=== PATIENT | male | born 1975 | race Caucasian/White ===

== ENCOUNTER 2018-08-16 02:06 | Observation (INO) | payer SELFPAY ==
[~2018-08-16] VITALS: Ht 177.8 cm; Wt 99.8 kg
[2018-08-16] MEDS ORDERED: SODIUM CHLORIDE 0.9% 1,000 ML IV ONE (02:30)
[2018-08-16 03:00] LABS: Basophils # (auto) 0.1 uL; Basophils % (auto) 0.9 % (0.0-2.0); Eosinophils # (auto) 0 uL; Hematocrit 46.5 % (41.0-53.0); Hemoglobin 15.2 g/dL (13.5-17.5); Lymphocytes # (auto) 3.3 uL; Lymphocytes % (auto) 24.1 % (10.0-50.0); Mean Corpuscular Hemoglobin 28.9 pg (28.0-32.0); Mean Corpuscular Hgb Conc. 32.7 g/dL (32.0-36.0); Mean Corpuscular Volume 88.3 fL (80.0-100.0); Monocytes # (auto) 0.8 uL; Monocytes % (auto) 5.6 % (0.0-12.0); Neutrophils # (auto) 9.5 uL; Neutrophils % (auto) 69.4 % (37.0-80.0); Platelet Count (auto) 407 10^3/uL (140-450); Red Blood Cells 5.26 10^6/uL (4.5-5.90); Red Cell Distribution Width 14.4 % (11.8-14.3); White Blood Cell 13.7 10^3/uL (4.4-10.8)
[2018-08-16 03:21] LABS: Potassium 4.1 mmol/L (3.5-5.1)
[2018-08-16 03:25] LABS: Albumin 3.9 g/dL (3.4-5.0); BUN/Creatinine Ratio 13.8; Calcium 7.6 mg/dL (8.5-10.1); Magnesium 2.5 mg/dL (1.6-2.6)
[2018-08-16 03:27] LABS: Bilirubin, Total 0.2 mg/dL (0.2-1.0); Salicylate < 1.7 mg/dL (2.8-20.0); Total Protein 7.7 g/dL (6.4-8.2)
[2018-08-16 03:29] LABS: Acetaminophen < 2.0 ug/mL (10-30)
[2018-08-16] MEDS ORDERED: THIAMINE INJ 100 MG, MULTIPLE VITAMIN 10 ML, FOLIC ACID 1 MG, MAGNESIUM SULF SDV 50% 8 ... IV ONE ×5 (03:45)
[2018-08-16 06:00] VITALS: BP 116/64
== END 2018-08-16 07:17 | disposition home or self-care (01) | DRG 896 ==
LOC: ER 02:06 → EDBD 02:06 → OVERFLOW 02:07 → ER 07:17
PROVIDERS: ADMIT Emergency Medicine; ATTEND Emergency Medicine
DX: F10.129 Alcohol abuse with intoxication, unspecified (principal); G92 Toxic encephalopathy; R32 Unspecified urinary incontinence; R41.82 Altered mental status, unspecified; R40.0 Somnolence
CPT/HCPCS: 36415; 80053; 80320; 80329; 83735; 85025; 96365; 96366; 99285; G0378